=== PATIENT | female | born 2000 | race Hispanic/Latino ===

== ENCOUNTER 2022-01-16 10:34 | Day surgery (SDC) | payer OTHER ==
[2022-01-16] MEDS ORDERED: hydrALAZINE 20 MG/ML VIAL SLOW IVP PRN (10:56)
[2022-01-16] MEDS ORDERED: Acetaminophen 500 MG TAB PO PRN (11:05)
[2022-01-16] MEDS ORDERED: Betamet Acet/Betamet Na Ph 30 MG/5 ML VIAL IM SCH (11:15)
[2022-01-16 11:22] VITALS: BMI 32.7
[2022-01-16 11:45] LABS: Hemoglobin 9.4 g/dL (12.0-15.5); Mean Corpuscular HGB CONC 31.1 g/dL (32.0-36.0); Mean Corpuscular Hemoglobin 24.7 pg (27.0-33.0); Mean Corpuscular Volume 79.3 fl (81.6-98.3); Mean Platelet Volume 10.1 fl (7.4-10.4); Platelet Count 355 10x3/uL (150-450); RBC Distribution Width 14.2 % (11.5-14.5); Red Blood Cell (RBC) Count 3.81 10x6/uL (3.90-5.03); White Blood Cell (WBC) Count 9.8 10x3/uL (3.5-10.5)
[2022-01-16 12:03] LABS: ALT (SGPT) 6 U/L (8-55); AST (SGOT) 17 U/L (5-34); Albumin 2.9 g/dL (3.5-5.0); Alkaline Phosphatase 154 U/L (40-100); Anion Gap 12 mmol/L (10-20); BUN (Urea Nitrogen) 9 mg/dL (7.0-18.7); Bilirubin, Total 0.3 mg/dL (0.2-1.2); Calc. Creatinine Clearance 235 mL/min (70-130); Calcium 8.1 mg/dL (7.8-10.44); Carbon Dioxide 18 mmol/L (22-29); Chloride 110 mmol/L (98-107); Globulin 2.9 g/dL (2.4-3.5); Glucose 76 mg/dL (70-105); Protein, Total 5.8 g/dL (6.0-8.3); Sodium 136 mmol/L (136-145)
[2022-01-16 12:37] LABS: Creatinine, Urine Less than 20.00 mg/dL (47-110); Protein, Urine Random Quant 21 mg/dL (1-14)
== END 2022-01-16 17:40 | disposition home or self-care (01) ==
LOC: CSHLD/OP 10:34
PROVIDERS: ATTEND Family Medicine
DX: O13.3 Gestational [pregnancy-induced] hypertension without significant proteinuria, third trimester (principal); Z3A.33 33 weeks gestation of pregnancy; Z79.899 Other long term (current) drug therapy
CPT/HCPCS: 76815; 76819; 80053; 82570; 84156; 84443; 85027; 86376; 86800; 96372; 99284; J0702

== ENCOUNTER 2022-01-28 14:26 | Inpatient (IN) | payer OTHER ==
[2022-01-28] MEDS ORDERED: Diphenoxylate HCl/Atropine Tablet PO PRN (17:04)
[2022-01-28] MEDS ORDERED: Calcium Gluc 4.6 MEQ/10 ML (100 MG/ML) SLOW IVP PRN (17:04)
[2022-01-28] MEDS ORDERED: Ibuprofen 800 MG TAB PO PRN (17:04)
[2022-01-28] MEDS ORDERED: Labetalol HCl 100 MG/20 ML VIAL SLOW IVP PRN ×3 (17:04)
[2022-01-28] MEDS ORDERED: Lorazepam 2 MG/ML VIAL SLOW IVP PRN (17:04)
[2022-01-28] MEDS ORDERED: Lidocaine 1% (PF) 30 ML VIAL SC PRN (17:04)
[2022-01-28] MEDS ORDERED: Ondansetron PF 4 MG/2 ML Vial IVP PRN (17:04)
[2022-01-28] MEDS ORDERED: HYDROcodone/Acetaminophen 5/325 mg Tablet PO PRN (17:04)
[2022-01-28] MEDS ORDERED: Butorphanol Tartrate 1 MG/ML VIAL SLOW IVP PRN (17:04)
[2022-01-28] MEDS ORDERED: Promethazine HCl 25 MG/ML VIAL IM PRN (17:04)
[2022-01-28] MEDS ORDERED: hydrALAZINE 20 MG/ML VIAL SLOW IVP PRN ×2 (17:04)
[2022-01-28] MEDS ORDERED: Misoprostol 200 MCG TAB PR PRN (17:04)
[2022-01-28] MEDS ORDERED: Carboprost 250 MCG/ML AMP IM PRN (17:04)
[2022-01-28] MEDS ORDERED: Acetaminophen 500 MG TAB PO PRN (17:04)
[2022-01-28 17:06] VITALS: BMI 32.0
[2022-01-28] MEDS ORDERED: Magnesium Sulfate 20 gm/500 ml 20 GM/500 ML BAG IVPB SCH ×2 (17:15)
[2022-01-28] MEDS ORDERED: NS w/ Oxytocin 30 units 500 ML IV SCH (17:15)
[2022-01-28] MEDS ORDERED: Labetalol HCl 100 MG TAB PO SCH (17:15)
[2022-01-28] MEDS ORDERED: Lactated Ringer's 1,000 ML IV SCH (17:15)
[2022-01-28] MEDS: Misoprostol 100 MCG TAB VAG SCH (18:05)
[2022-01-28 18:33] LABS: Hemoglobin 10.5 g/dL (12.0-15.5); Mean Corpuscular HGB CONC 30.9 g/dL (32.0-36.0); Mean Corpuscular Hemoglobin 24.5 pg (27.0-33.0); Mean Corpuscular Volume 79.3 fl (81.6-98.3); Mean Platelet Volume 10.6 fl (7.4-10.4); Platelet Count 440 10x3/uL (150-450); RBC Distribution Width 14.8 % (11.5-14.5); Red Blood Cell (RBC) Count 4.29 10x6/uL (3.90-5.03); White Blood Cell (WBC) Count 14.1 10x3/uL (3.5-10.5)
[2022-01-28 18:46] LABS: ALT (SGPT) Less than 6 U/L (8-55); AST (SGOT) 15 U/L (5-34); Albumin 3.2 g/dL (3.5-5.0); Alkaline Phosphatase 192 U/L (40-100); Anion Gap 16 mmol/L (10-20); BUN (Urea Nitrogen) 9 mg/dL (7.0-18.7); Bilirubin, Total 0.4 mg/dL (0.2-1.2); Calc. Creatinine Clearance 229 mL/min (70-130); Calcium 8.8 mg/dL (7.8-10.44); Carbon Dioxide 18 mmol/L (22-29); Chloride 107 mmol/L (98-107); Potassium 4.8 mmol/L (3.5-5.1); Protein, Total 6.2 g/dL (6.0-8.3); Sodium 136 mmol/L (136-145)
[2022-01-28 18:48] LABS: Glucose 55 mg/dL (70-105)
[2022-01-28 19:04] LABS: Syphilis Antibody Nonreactive (Nonreactive); Syphilis Antibody Index 0.03 S/CO (<1.00 Non-Reactive)
[2022-01-28 19:05] LABS: HBSAg Index 0.14 S/CO (0-0.99); Hep B Surf Ag Non-Reactive S/CO (NonReactive)
[2022-01-29 01:26] LABS: SARS-CoV-2 NAA Rapid Test DETECTED (NotDetected)
[2022-01-29] MEDS: Misoprostol 100 MCG TAB VAG SCH ×2 (01:59→19:25)
[2022-01-29 04:35] LABS: Creatinine, Urine 43.05 mg/dL (47-110)
[2022-01-29] MEDS ORDERED: Fentanyl 2 mcg/Bup 0.1% Cadd 100 ML ONE ×2 (05:26→11:54)
[2022-01-29] MEDS ORDERED: Naloxone HCl 0.4 mg/ml Vial IVP PRN ×2 (06:18)
[2022-01-29] MEDS ORDERED: Acetaminophen 325 MG TAB PO PRN (06:18)
[2022-01-29] MEDS ORDERED: Lactated Ringer's 500 ML IV PRN (06:18)
[2022-01-29] MEDS ORDERED: ePHEDrine Sulfate 50 MG/10 ML VIAL SLOW IVP PRN (06:18)
[2022-01-29] MEDS ORDERED: Promethazine HCl 25 MG/ML VIAL IM PRN ×2 (06:18→15:32)
[2022-01-29] MEDS ORDERED: diphenhydrAMINE 50 MG/ML VIAL IVP PRN (06:18)
[2022-01-29] MEDS ORDERED: Ondansetron PF 4 MG/2 ML Vial IVP PRN ×2 (06:18→15:32)
[2022-01-29] MEDS ORDERED: Moisturizing Cream (Eucerin) 113 GM JAR TOP PRN (06:18)
[2022-01-29] MEDS ORDERED: Communication Order-Pharmacy FS SCH (06:30)
[2022-01-29] MEDS ORDERED: Fentanyl 2 mcg/Bupivacaine 0.1% Cassette 100 ML EPIDURAL SCH (06:30)
[2022-01-29] MEDS ORDERED: Terbutaline Sulfate 1 MG/ML VIAL ONE (07:47)
[2022-01-29] MEDS ORDERED: Azithromycin 500 MG VIAL ONE (12:11)
[2022-01-29] MEDS ORDERED: ceFAZolin 2 GM/Dextrose 50 ML IVPB ONE (12:11)
[2022-01-29] MEDS ORDERED: PROPOFOL 20 ML ONE (12:12)
[2022-01-29] MEDS ORDERED: Succinylcholine 200 MG/10 ml SYRINGE FS ONE (12:12)
[2022-01-29 12:31] LABS: RapidComm Collect By NURSE
[2022-01-29] MEDS ORDERED: Carboprost 250 MCG/ML AMP ONE (12:32)
[2022-01-29 12:33] LABS: RapidComm Collect By NURSE; pH (Cord, venous) 7.257 (7.250-7.350)
[2022-01-29] MEDS ORDERED: Morphine PF 10 MG/10 ML VIAL ONE (12:33)
[2022-01-29] MEDS ORDERED: Ondansetron PF 4 MG/2 ML Vial ONE (12:36)
[2022-01-29] MEDS ORDERED: Metoclopramide HCl 10 MG/2 ML VIAL ONE (12:36)
[2022-01-29] MEDS ORDERED: Oxytocin 10 UNITS/ML VIAL ONE (12:36)
[2022-01-29] MEDS ORDERED: Ketorolac Tromethamine 30 MG/ML VIAL ONE (12:37)
[2022-01-29] MEDS ORDERED: Magnesium Sulfate 20 gm/500 ml 20 GM/500 ML BAG ONE (13:11)
[2022-01-29] MEDS ORDERED: hydrALAZINE 20 MG/ML VIAL SLOW IVP PRN (13:38)
[2022-01-29] MEDS ORDERED: Lorazepam 2 MG/ML VIAL SLOW IVP PRN (13:38)
[2022-01-29] MEDS ORDERED: Calcium Gluc 4.6 MEQ/10 ML (100 MG/ML) SLOW IVP PRN (13:38)
[2022-01-29] MEDS: Labetalol HCl 200 MG TAB PO SCH (15:21)
[2022-01-29] MEDS ORDERED: NS w/ Oxytocin 30 units 500 ML IV SCH (15:32)
[2022-01-29] MEDS ORDERED: diphenhydrAMINE 25 MG CAP PO PRN (15:32)
[2022-01-29] MEDS ORDERED: Simethicone Chewable 80 MG TAB PO PRN (15:32)
[2022-01-29] MEDS ORDERED: Lanolin Ointment 7 GM TUBE TOP PRN (15:32)
[2022-01-29] MEDS ORDERED: Misoprostol 200 MCG TAB PR PRN (15:32)
[2022-01-29] MEDS ORDERED: HYDROcodone/Acetaminophen 5/325 mg Tablet PO PRN (15:32)
[2022-01-29] MEDS: Ketorolac Tromethamine 30 MG/ML VIAL IVP SCH (19:27)
[2022-01-29] MEDS: Docusate 100 MG CAP PO SCH (21:15)
[2022-01-29] MEDS: Ferrous Sulfate 325 MG TAB PO SCH (21:15)
[2022-01-29] MEDS: Magnesium Sulfate 20 gm/500 ml 20 GM/500 ML BAG IVPB SCH (22:00)
[2022-01-30] MEDS: Labetalol HCl 200 MG TAB PO SCH ×2 (02:00→14:02)
[2022-01-30 04:48] LABS: Hemoglobin 8.5 g/dL (12.0-15.5); Mean Corpuscular HGB CONC 31.5 g/dL (32.0-36.0); Mean Corpuscular Hemoglobin 24.6 pg (27.0-33.0); Platelet Count 342 10x3/uL (150-450); RBC Distribution Width 15.3 % (11.5-14.5); Red Blood Cell (RBC) Count 3.46 10x6/uL (3.90-5.03); White Blood Cell (WBC) Count 14.5 10x3/uL (3.5-10.5)
[2022-01-30] MEDS: Ketorolac Tromethamine 30 MG/ML VIAL IVP SCH ×2 (06:12)
[2022-01-30] MEDS: Magnesium Sulfate 20 gm/500 ml 20 GM/500 ML BAG IVPB SCH (08:38)
[2022-01-30] MEDS: Ferrous Sulfate 325 MG TAB PO SCH ×2 (08:39→21:47)
[2022-01-30] MEDS: Docusate 100 MG CAP PO SCH ×2 (08:39→21:47)
[2022-01-30] MEDS: Prenatal Vitamin 1 TAB PO SCH (08:39)
[2022-01-30] MEDS: Ibuprofen 800 MG TAB PO SCH ×2 (14:01→21:47)
[2022-01-30] MEDS ORDERED: Boostrix 0.5 ML (Tdap) VIAL IM ONE (15:32)
[2022-01-31] MEDS: Labetalol HCl 200 MG TAB PO SCH ×2 (02:32→13:33)
[2022-01-31] MEDS: Ferrous Sulfate 325 MG TAB PO SCH ×2 (08:01→21:39)
[2022-01-31] MEDS: Prenatal Vitamin 1 TAB PO SCH (08:01)
[2022-01-31] MEDS: Docusate 100 MG CAP PO SCH ×2 (09:37→21:39)
[2022-01-31] MEDS: HYDROcodone/Acetaminophen 5/325 mg Tablet PO PRN ×2 (09:37→13:33)
[2022-01-31] MEDS: Ibuprofen 800 MG TAB PO SCH ×3 (13:33→21:39)
[2022-01-31 20:54] VITALS: TEMP 98.5
[2022-02-01] MEDS: Labetalol HCl 200 MG TAB PO SCH (01:12)
[2022-02-01] MEDS: Ibuprofen 800 MG TAB PO SCH (05:00)
[2022-02-01 08:39] VITALS: BP 123/68
[2022-02-01] MEDS: HYDROcodone/Acetaminophen 5/325 mg Tablet PO PRN (08:42)
[2022-02-01] MEDS: Docusate 100 MG CAP PO SCH (08:43)
[2022-02-01] MEDS: Prenatal Vitamin 1 TAB PO SCH (08:43)
[2022-02-01] MEDS: Ferrous Sulfate 325 MG TAB PO SCH (08:43)
== END 2022-02-01 11:45 | disposition home or self-care (01) | DRG 786 ==
LOC: CSHLD 14:26 → CSHANTE 01-30 17:25
PROVIDERS: ADMIT Family Medicine; ATTEND Family Medicine
PROC: 8E0ZXY6 Isolation (ICD-10-PCS; 2022-01-28)
PROC: 10D00Z1 Extraction of Products of Conception, Low, Open Approach (ICD-10-PCS; principal; 2022-01-29)
PROC: 3E0P7VZ Introduction of Hormone into Female Reproductive, Via Natural or Artificial Opening (ICD-10-PCS; 2022-01-29)
DX: O14.94 Unspecified pre-eclampsia, complicating childbirth (principal); U07.1 COVID-19; O98.52 Other viral diseases complicating childbirth; Z3A.37 37 weeks gestation of pregnancy; Z37.0 Single live birth; O99.284 Endocrine, nutritional and metabolic diseases complicating childbirth; E05.90 Thyrotoxicosis, unspecified without thyrotoxic crisis or storm; Z79.899 Other long term (current) drug therapy; O36.5930 Maternal care for other known or suspected poor fetal growth, third trimester, not applicable or unspecified; O42.02 Full-term premature rupture of membranes, onset of labor within 24 hours of rupture; O76 Abnormality in fetal heart rate and rhythm complicating labor and delivery; O32.8XX0 Maternal care for other malpresentation of fetus, not applicable or unspecified
CPT/HCPCS: 36415; 51702; 80053; 82570; 82805; 84156; 85027; 86780; 86850; 86900; 86901; 87340; J1885; J2274; J2405; J2590; J2704; J2765; J3475; J3490; U0002